=== PATIENT | female | born 1960 | race African-American/Black ===

== ENCOUNTER 2019-08-21 11:52 | Inpatient (IN) | payer MEDICAID ==
[2019-08-21] MEDS ORDERED: ONDANSETRON 4 MG TAB.RAPDIS PO ONE (13:30)
[2019-08-21] MEDS ORDERED: MORPHINE SULFATE 10 MG/ML INJ IM ONE (13:30)
--- NOTE | 2019-08-21 13:38 | ER Document Report ---
ED Medical Screen (RME) - General Chief Complaint: Flank Pain Stated Complaint: FLANK PAIN Time Seen by Provider: 08/21/19 13:26 - HPI Notes: 08/21/19 59-year-old female to the emergency department with complaints of left- sided flank pain and left upper quadrant abdominal pain that has been ongoing since Saturday and getting progressively worse. She states that she is having nausea and vomiting. She states that when she takes a big deep breath the pain gets worse. She denies any hematuria. She is never had a kidney stone. I performed a brief medical screening exam on the patient determined that she will need further evaluation by main side provider. I have placed initial orders to help expedite her care. - Related Data Allergies/Adverse Reactions: No Known Allergies Allergy (Verified 08/21/19 13:26) Physical Exam - Vital signs Vitals: Temp Pulse Resp BP Pulse Ox 97.6 F 62 20 153/86 H 94 08/21/19 13:00 08/21/19 13:00 08/21/19 13:00 08/21/19 13:00 08/21/19 13:00 Course - Vital Signs Vital signs: Temp Pulse Resp BP Pulse Ox 97.6 F 62 20 153/86 H 94 08/21/19 13:00 08/21/19 13:00 08/21/19 13:00 08/21/19 13:00 08/21/19 13:00
[2019-08-21 14:01] LABS: APPEARANCE,URINE CLEAR; BILIRUBIN,URINE NEGATIVE (NEGATIVE); COLOR,URINE YELLOW; GLUCOSE, URINE NEGATIVE (NEGATIVE); KETONES,URINE TRACE mg/dL (NEGATIVE); PROTEIN,URINE NEGATIVE (NEGATIVE); URINE SPECIFIC GRAVITY 1.008
--- NOTE | 2019-08-21 15:44 | RADIOLOGY REPORT (SQ) ---
EXAM DESCRIPTION: CT ABD/PELVIS NO ORAL OR IV COMPLETED DATE/TIME: 08/21/2019 3:19 pm REASON FOR STUDY: LUQ/left flank pain COMPARISON: None. TECHNIQUE: CT scan of the abdomen and pelvis performed without intravenous or oral contrast. Images reviewed with lung, soft tissue, and bone windows. Reconstructed coronal and sagittal MPR images revi ewed. All images stored on PACS. All CT scanners at this facility use dose modulation, iterative reconstruction, and/or weight based d osing when appropriate to reduce radiation dose to as low as reasonably achievable (ALARA). [facility]: Dose Right [facility]: CareDose [facility]: Dose Right [facility]: Teradose 4D [facility]: Smart Biometric Security RADIATION DOSE: CT Rad equipment meets quality standard of care and radiation dose reduction techniq ues were employed. CTDIvol: 19.2 mGy. DLP: 1092 mGy-cm.mGy. LIMITATIONS: Morbidly obese patient, beam hardening artifact FINDINGS: There is a hyperdense (70 Hounsfield units) cyst or mass along the left upper pole kidney measuring almost 3 cm in diameter on axial image 31 and coronal image 55. No left-sided renal stone s or hydronephrosis. Also surrounding the left upper pole kidney in the pararenal fat, there is increased attenuation from inflammation/infection/fluid in the left upper quadrant retroperitoneum. This tract down the left p ericolic gutter and up towards the pancreatic tail, splenic flexure colon and splenic hilum. Retrope ritoneal inflammation/ stranding in the left upper quadrant could indicate pancreatitis, colitis ritu g the splenic flexure colon, or could be related to left-sided pyelonephritis. Acute hemorrhage into a left upper pole renal cortical cyst or mass could also cause this appearance. These findings were discussed with Alyssa Santos MD in the emergency room. LOWER CHEST: No significant findings. No nodules or infiltrates. NON-CONTRASTED LIVER, SPLEEN, ADRENALS: Evaluation limited by lack of IV contrast. No identified sign ificant masses. PANCREAS: Pancreatic head neck and body unremarkable. Inflammation along the pancreatic tail in the left upper quadrant as above GALLBLADDER: Surgically absent RIGHT KIDNEY AND URETER: No suspicious masses. Assessment limited by lack of IV contrast. No signif icant calcifications. No hydronephrosis or hydroureter. LEFT KIDNEY AND URETER: As above. AORTA AND RETROPERITONEUM: Left upper quadrant retroperitoneal inflammation. Abdominal aorta, vena c puma grossly unremarkable. BOWEL AND PERITONEAL CAVITY: Right upper quadrant inflammation adjacent to the splenic flexure colon and pancreatic tail. No CT evidence of bowel obstruction or free intraperitoneal air or fluid. APPENDIX: Normal. PELVIS, BLADDER, AND ABDOMINAL WALL:No abnormal masses. No free fluid. Bladder normal. Post hysterec paul BONES: No significant findings. OTHER: No other significant finding. IMPRESSION: Hyperdense mass left upper pole kidney could represent a hemorrhagic cyst or solid tumor . Left upper quadrant retroperitoneal inflammation. Differential is pyelonephritis versus pancreatitis at the pancreatic tail. Inflammation in the region from splenic flexure colitis could not be exclud ed COMMENT: Quality ID # [id number]: Final reports with documentation of one or more dose reduction techniques (e.g., Automated exposure control, adjustment of the mA and/or kV according to patient size, use of iterative reconstruction technique) TECHNICAL DOCUMENTATION: JOB ID: [id number] [employer]- All Rights Reserved Reading location - IP/workstation name: [email or web address]
--- NOTE | 2019-08-21 15:46 | RADIOLOGY REPORT (SQ) ---
EXAM DESCRIPTION: CHEST 2 VIEWS COMPLETED DATE/TIME: 08/21/2019 3:37 pm REASON FOR STUDY: LUq abd pain into the chest, hurts with big breath COMPARISON: None. EXAM PARAMETERS: NUMBER OF VIEWS: two views TECHNIQUE: Digital Frontal and Lateral radiographic views of the chest acquired. RADIATION DOSE: NA LIMITATIONS: Morbidly obese patient FINDINGS: LUNGS AND PLEURA: No opacities, masses or pneumothorax. No pleural effusion. MEDIASTINUM AND HILAR STRUCTURES: No masses or contour abnormalities. HEART AND VASCULAR STRUCTURES: Mild cardiomegaly BONES: No acute findings. HARDWARE: None in the chest. OTHER: No other significant finding. IMPRESSION: Mild cardiomegaly. No acute infiltrates TECHNICAL DOCUMENTATION: JOB ID: [id number] [employer]- All Rights Reserved Reading location - IP/workstation name: [email or web address]
[2019-08-21 19:06] LABS: ABSOLUTE LYMPHOCYTES (AUTO) 1.5 10^3/uL (0.5-4.7); ABSOLUTE MONOCYTES (AUTO) 1.5 10^3/uL (0.1-1.4); ABSOLUTE NEUT (AUTO) 10.9 10^3/uL (1.7-8.2); BASOPHILS % (AUTO) 0.3 % (0-2); EOSINOPHILS % (AUTO) 0.1 % (0-6); HEMOGLOBIN 12.2 g/dL (12.0-15.5); LYMPHOCYTES % (AUTO) 10.5 % (13-45); MEAN CORPUSCULAR VOLUME 88 fl (80-97); MONOCYTES % (AUTO) 10.9 % (3-13); PLATELET COUNT 234 10^3/uL (150-450); RED BLOOD COUNT 4.21 10^6/uL (3.72-5.28); RED CELL DISTRIBUTION WIDTH 15.8 % (11.5-14.0); SEGMENTED NEUTROPHILS % (AUTO) 78.2 % (42-78); TOTAL CELLS COUNTED % (AUTO) 100 %; WHITE BLOOD COUNT 13.9 10^3/uL (4.0-10.5)
[2019-08-21 19:24] LABS: ALBUMIN 3.8 g/dL (3.5-5.0); ALKALINE PHOSPHATASE 200 U/L (38-126); ANION GAP 11 (5-19); ASPARTATE AMINO TRANSFERASE 29 U/L (14-36); BILIRUBIN,DIRECT 0.7 mg/dL (0.0-0.4); BILIRUBIN,TOTAL 1.1 mg/dL (0.2-1.3); BLOOD UREA NITROGEN 9 mg/dL (7-20); CALCIUM 8.8 mg/dL (8.4-10.2); CARBON DIOXIDE 28 mmol/L (22-30); CHLORIDE 101 mmol/L (98-107); GLUCOSE 176 mg/dL (75-110); POTASSIUM 3.1 mmol/L (3.6-5.0); TOTAL PROTEIN 7.7 g/dL (6.3-8.2)
[2019-08-21] MEDS ORDERED: POTASSIUM CHLORIDE 10 MEQ TABLET.ER PO ONE (19:50)
[2019-08-21] MEDS ORDERED: NITROFURANTOIN MONOHYD/M-CRYST 100 MG CAPSULE PO ONE (19:51)
[2019-08-21] MEDS ORDERED: MORPHINE SULFATE 10 MG/ML INJ IV ONE (20:28)
[2019-08-21] MEDS ORDERED: NORMAL SALINE 1000 ML 1,000 ML IV ONE (22:09)
[2019-08-21] MEDS ORDERED: CEFTRIAXONE 1 GM/D5W RTU 1 GM/50 ML RTUPB IV ONE (22:10)
--- NOTE | 2019-08-21 22:14 | ER Document Report ---
ED General - General Chief Complaint: Flank Pain Stated Complaint: FLANK PAIN Time Seen by Provider: 08/21/19 13:26 Information source: Patient, Relative TRAVEL OUTSIDE OF THE [place] IN LAST 30 DAYS: No - HPI Onset: Just prior to arrival Onset/Duration: Gradual Quality of pain: Pressure, Throbbing Severity: Moderate Pain Level: 4 Associated symptoms: None Exacerbated by: Movement Relieved by: Denies Similar symptoms previously: No Recently seen / treated by doctor: No - Related Data Allergies/Adverse Reactions: No Known Allergies Allergy (Verified 08/21/19 13:26) Past Medical History - General Information source: Patient - Social History Smoking Status: Former Smoker Frequency of alcohol use: Occasional Drug Abuse: None Lives with: Family Family History: Reviewed & Not Pertinent Patient has suicidal ideation: No Patient has homicidal ideation: No - Past Medical History Cardiac Medical History: Reports: Hx Hypercholesterolemia, Hx Hypertension Endocrine Medical History: Reports: Hx Diabetes Mellitus Type 2 Review of Systems - Review of Systems Notes: REVIEW OF SYSTEMS: CONSTITUTIONAL : Denies fever, chills, or sweats. However on presentation patient is in mild to moderate discomfort EENT: Denies eye, ear, throat, or mouth pain or symptoms. Denies nasal or sinus congestion. CARDIOVASCULAR: Denies chest pain. RESPIRATORY: Denies cough, cold, or chest congestion. Denies shortness of breath, difficulty breathing, or wheezing. GASTROINTESTINAL: Patient reports abdominal pain worse to the left lower quadrant and flank. Patient denies any recent travel history or trauma history to the abdomen GENITOURINARY: Denies difficulty urinating, painful urination, burning, frequency, or blood in urine. MUSCULOSKELETAL: Denies neck or back pain or joint pain or swelling. SKIN: Denies rash or skin lesions. HEMATOLOGIC : Denies easy bruising or bleeding. NEUROLOGICAL: Denies altered mental status or loss of consciousness. Denies headache. Denies weakness or paralysis or loss of use of either side. Denies problems with gait or speech. Denies sensory or motor loss. PSYCHIATRIC: Denies suicidal or homicidal ideations 10 Systems are negative unless otherwise specified above Physical Exam - Vital signs Vitals: Temp Pulse Resp BP Pulse Ox 97.6 F 62 20 153/86 H 94 08/21/19 13:00 08/21/19 13:08/21/19 13:08/21/19 13:08/21/19 13:00 - Notes Notes: HEENT: Normocephalic atraumatic pupils are equal round reactive to light extraocular muscles are intact there is no conjunctival injection Neck: Trachea is midline no JVD Lungs: are clear to auscultation no wheezes rales or rhonchi Cardiac: Regular rhythm and rate no gallops murmurs or rubs were appreciated Abdomen: Patient is morbidly obese complaining of pain to the left flank and left lower quadrant there is no rebound however patient does have active guarding there is no appreciable CVA tenderness any range of motion does elicit discomfort/pain response Extremities: Active full range of motion x4, 2+ pulses x4 Skin: Warm dry intact Neurologic: Patient is alert and oriented x3 Mcewen Coma Scale of 15 Course - Re-evaluation Re-evalutation: 08/21/19 22:11 Patient has been reevaluated several times while in the emergency department. Patient has remained stable without decompensation. After review of applicable laboratory and/or radiologic results, there are no signs of acute abdomen to include: acute appendicitis, cholelithiasis or cholecystitis, bowel obstruction or ileus, there are no signs of Aortic Dissection, diverticulitis or diverticulosis. Kidney abnormalities include UTI and hyperdense mass to the left upper pole of the kidney per CT reads, no signs of Ovarian torsion. There is question by the radiologist of etiology of left upper quadrant retroperitoneal inflammation. I have consulted with the hospitalist who is agreeable with admission. Patient did receive 20 mEq of potassium p.o. for mild hypokalemia. Patient initially received Macrobid 100 mg p.o. and subsequently 1 g of Rocephin IV for treating UTI and presumed pyelonephritis. Patient and family are aware and agreeable with admission. - Vital Signs Vital signs: Temp Pulse Resp BP Pulse Ox 97.9 F 90 19 145/69 H 95 08/25/19 11:17 08/25/19 14:00 08/25/19 11:17 08/25/19 11:17 08/25/19 13:11 - Laboratory Result Diagrams: 08/24/19 05:20 08/24/19 22:24 Laboratory results interpreted by me: 08/21/19 08/21/19 08/21/19 13:20 18:24 18:24 WBC 13.9 H RDW 15.8 H Lymph % (Auto) 10.5 L Absolute Neuts (auto) 10.9 H Absolute Monos (auto) 1.5 H Seg Neutrophils % 78.2 H Potassium 3.1 L Glucose 176 H Magnesium Direct Bilirubin 0.7 H Alkaline Phosphatase 200 H Urine Ketones TRACE H Urine Blood SMALL H Urine Urobilinogen 4.0 H Leukocyte Esterase Rfl MODERATE H 08/21/19 18:24 WBC RDW Lymph % (Auto) Absolute Neuts (auto) Absolute Monos (auto) Seg Neutrophils % Potassium Glucose Magnesium 2.7 H Direct Bilirubin Alkaline Phosphatase Urine Ketones Urine Blood Urine Urobilinogen Leukocyte Esterase Rfl - Diagnostic Test Radiology reviewed: Reports reviewed Discharge - Discharge Clinical Impression: Pyelonephritis UTI (urinary tract infection) Qualifiers: Urinary tract infection type: acute pyelonephritis Qualified Code(s): N10 - Acute pyelonephritis Condition: Fair Disposition: ADMITTED INPATIENT Admitting Provider: Chano (Hospitalist) Unit Admitted: Telemetry
[2019-08-21] MEDS ORDERED: MAG HYDROX/AL HYDROX/SIMETH SUSP 30 ML UDCUP PO PRN (22:17)
[2019-08-21] MEDS ORDERED: GLUCAGON,HUMAN RECOMB 1 MG INJ IM PRN (22:17)
[2019-08-21] MEDS ORDERED: IPRATROPIUM/ALBUTEROL 0.5-2.5 MG/3 ML AMPUL NEB PRN (22:17)
[2019-08-21] MEDS ORDERED: DEXTROSE 50%-WATER 25 GM/50 ML DISP.SYRIN IV PRN ×2 (22:17)
[2019-08-21] MEDS ORDERED: DEXTROSE 40% GEL 15 GM TUBE PO PRN ×2 (22:17)
[2019-08-21] MEDS ORDERED: NORMAL SALINE 1000 ML 1,000 ML IV PRN (22:30)
[2019-08-21] MEDS ORDERED: MAGNESIUM HYDROXIDE SUSP 30 ML UDCUP PO ONE (22:45)
[2019-08-22] MEDS: ACETAMINOPHEN 325 MG TABLET PO PRN ×2 (00:44→08:03)
[2019-08-22] MEDS: POTASSI CL 20 MEQ/50 ML RIDER 20 MEQ/50 ML RTUPB IV SCH ×2 (00:45→05:56)
[2019-08-22] MEDS ORDERED: CEFTRIAXONE 1 GM/D5W RTU 1 GM/50 ML RTUPB IV ONE (01:18)
[2019-08-22] MEDS: KETOROLAC TROMETHAMINE INJ/PF 30 MG/1 ML SDV IV PRN ×3 (02:35→21:11)
--- NOTE | 2019-08-22 05:49 | PDOC H&P ---
History of Present Illness Admission Date/PCP: 08/21/19 22:22 Patient complains of: Left-sided flank pain and fever History of Present Illness: SABRINA MEZA is a 59 year old female with a past medical history of diabetes, hypertension, super morbid obesity and obstructive sleep apnea. She presents with fever and 4 days of sharp left-sided chest pain worsened by deep breathing. In the emergency department she is found to have fever, tachycardia, pyuria and left-sided pyelonephritis without abscess or hydronephrosis. She started on empiric antibiotics and referred to the hospitalist for admission. Patient denies recent antibiotic use or nephrolithiasis. Past Medical History Cardiac Medical History: Reports: Hyperlipidema, Hypertension Pulmonary Medical History: Reports: Sleep Apnea Endocrine Medical History: Reports: Diabetes Mellitus Type 2 Social History Information Source: Patient, Emergency Med Personnel, [facility] Records Lives with: Family Smoking Status: Former Smoker - Advance Directive Resuscitation Status: Full Code Family History Family History: CAD, DM, Hypertension Parental Family History Reviewed: Yes Children Family History Reviewed: Yes Sibling(s) Family History Reviewed.: Yes Medication/Allergy Allergies/Adverse Reactions: No Known Allergies Allergy (Verified 08/21/19 13:26) Review of Systems Constitutional: PRESENT: as per HPI, chills, fatigue, fever(s), weight gain Eyes: ABSENT: visual disturbances Ears: ABSENT: hearing changes Cardiovascular: ABSENT: chest pain, dyspnea on exertion, edema, orthropnea, palpitations Respiratory: ABSENT: cough, hemoptysis Gastrointestinal: ABSENT: abdominal pain, constipation, diarrhea, hematemesis, hematochezia, nausea, vomiting Genitourinary: PRESENT: as per HPI, dysuria. ABSENT: hematuria Musculoskeletal: ABSENT: joint swelling Integumentary: ABSENT: rash, wounds Neurological: ABSENT: abnormal gait, abnormal speech, confusion, dizziness, focal weakness, syncope Psychiatric: ABSENT: anxiety, depression, homidical ideation, suicidal ideation Endocrine: ABSENT: cold intolerance, heat intolerance, polydipsia, polyuria Hematologic/Lymphatic: ABSENT: easy bleeding, easy bruising Physical Exam Vital Signs: Temp Pulse Resp BP Pulse Ox 99.8 F 111 H 28 H 144/72 H 95 08/22/19 01:11 08/22/19 02:00 08/22/19 04:08 08/22/19 01:11 02/01/20 04:08 Intake & Output 08/20/19 08/21/19 08/22/19 11:59 11:59 11:59 Intake Total 50 Balance 50 Weight 185.7 kg General appearance: PRESENT: cooperative, morbidly obese, severe distress Head exam: PRESENT: atraumatic, normocephalic Eye exam: PRESENT: conjunctiva pink, EOMI, PERRLA. ABSENT: scleral icterus Ear exam: PRESENT: normal external ear exam Mouth exam: PRESENT: moist, tongue midline Neck exam: ABSENT: carotid bruit, JVD, lymphadenopathy, thyromegaly Respiratory exam: PRESENT: accessory muscle use, crackles, retraction, t achypnea. ABSENT: rales, rhonchi, wheezes Cardiovascular exam: PRESENT: tachycardia. ABSENT: diastolic murmur, rubs, systolic murmur Pulses: PRESENT: normal dorsalis pedis pul Vascular exam: PRESENT: normal capillary refill GI/Abdominal exam: PRESENT: normal bowel sounds, soft. ABSENT: distended, guarding, mass, organolmegaly, rebound, tenderness Rectal exam: PRESENT: deferred Extremities exam: PRESENT: full ROM, +1 edema. ABSENT: calf tenderness, clubbing, pedal edema Neurological exam: PRESENT: alert, awake, oriented to person, oriented to place, oriented to time, oriented to situation, CN II-XII grossly intact. ABSENT: motor sensory deficit Psychiatric exam: PRESENT: appropriate affect, normal mood. ABSENT: homicidal ideation, suicidal ideation Skin exam: PRESENT: dry, intact, warm. ABSENT: cyanosis, rash Results Laboratory Results: 08/21/19 18:24 08/21/19 18:24 08/21/19 08/21/19 08/21/19 13:20 18:24 18:24 WBC 13.9 H RBC 4.21 Hgb 12.2 Hct 37.0 MCV 88 MCH 29.0 MCHC 33.0 RDW 15.8 H Plt Count 234 Seg Neutrophils % 78.2 H Sodium 140.1 Potassium 3.1 L Chloride 101 Carbon Dioxide 28 Anion Gap 11 BUN 9 Creatinine 0.69 Est GFR ( Amer) > 60 Glucose 176 H Calcium 8.8 Magnesium Total Bilirubin 1.1 AST 29 Alkaline Phosphatase 200 H Total Protein 7.7 Albumin 3.8 Lipase 205.7 Urine Color YELLOW Urine Appearance CLEAR Urine pH 7.0 Ur Specific [place] 1.008 Urine Protein NEGATIVE Urine Glucose (UA) NEGATIVE Urine Ketones TRACE H Urine Blood SMALL H Urine RBC (Auto) 3 08/21/19 18:24 WBC RBC Hgb Hct MCV MCH MCHC RDW Plt Count Seg Neutrophils % Sodium Potassium Chloride Carbon Dioxide Anion Gap BUN Creatinine Est GFR ( Amer) Glucose Calcium Magnesium 2.7 H Total Bilirubin AST Alkaline Phosphatase Total Protein Albumin Lipase Urine Color Urine Appearance Urine pH Ur Specific [place] Urine Protein Urine Glucose (UA) Urine Ketones Urine Blood Urine RBC (Auto) Impressions: Abdomen/Pelvis CT 08/21/19 13:29 IMPRESSION: Hyperdense mass left upper pole kidney could represent a hemorrhagic cyst or solid tumor. Left upper quadrant retroperitoneal inflammation. Differential is pyelonephritis versus pancreatitis at the pancreatic tail. Inflammation in the region from splenic flexure colitis could not be excluded Chest X-Ray 08/21/19 13:30 IMPRESSION: Mild cardiomegaly. No acute infiltrates Assessment and Plan - Diagnosis (1) Pyelonephritis Is this a current diagnosis for this admission?: Yes Plan: Empiric antibiotics, follow-up blood and urine culture consider follow-up ultrasound for evaluation of forming abscess given irregularity described on CT (2) Sepsis Is this a current diagnosis for this admission?: Yes Plan: Secondary to #1, IV fluid challenge, follow-up blood and urine culture (3) Obstructive sleep apnea Is this a current diagnosis for this admission?: Yes Plan: Complicated by super morbid obesity, avoid cervical flexion, BiPAP while asleep (4) Diabetes Is this a current diagnosis for this admission?: Yes Plan: Outpatient regimen with Humalog sliding scale - Time Time Spent with patient: 25-34 minutes - Inpatient Certification Medical Necessity: Need Close Monitoring Due to Risk of Patient Decompensation
[2019-08-22] MEDS ORDERED: POTASSI CL 20 MEQ/50 ML RIDER 20 MEQ/50 ML RTUPB IV ONE (05:53)
[2019-08-22] MEDS: HEPARIN SOD (PORCINE) 5,000 UNIT/ML 1 ML VIAL SUBCUT SCH ×3 (05:57→21:06)
[2019-08-22 06:16] LABS: ABSOLUTE BASOPHILS # (AUTO) 0.1 10^3/uL (0.0-0.2); ABSOLUTE LYMPHOCYTES (AUTO) 1.9 10^3/uL (0.5-4.7); ABSOLUTE MONOCYTES (AUTO) 2.1 10^3/uL (0.1-1.4); ABSOLUTE NEUT (AUTO) 12.4 10^3/uL (1.7-8.2); BASOPHILS % (AUTO) 0.3 % (0-2); EOSINOPHILS % (AUTO) 0.3 % (0-6); HEMATOCRIT 33.9 % (36.0-47.0); HEMOGLOBIN 11.1 g/dL (12.0-15.5); LYMPHOCYTES % (AUTO) 11.5 % (13-45); MEAN CORPUSCULAR HEMOGLOBIN 28.8 pg (27.0-33.4); MEAN CORPUSCULAR HGB CONC 32.7 g/dL (32.0-36.0); MEAN CORPUSCULAR VOLUME 88 fl (80-97); MONOCYTES % (AUTO) 12.9 % (3-13); PLATELET COUNT 209 10^3/uL (150-450); RED BLOOD COUNT 3.86 10^6/uL (3.72-5.28); RED CELL DISTRIBUTION WIDTH 15.9 % (11.5-14.0); TOTAL CELLS COUNTED % (AUTO) 100 %; WHITE BLOOD COUNT 16.5 10^3/uL (4.0-10.5)
[2019-08-22] MEDS: INSULIN LISPRO 100 UNIT/ML 3 ML VIAL SUBCUT SCH ×3 (08:09→17:16)
[2019-08-22] MEDS: MAGNESIUM HYDROXIDE SUSP 30 ML UDCUP PO SCH (09:59)
[2019-08-22] MEDS: DOCUSATE SODIUM 100 MG CAPSULE PO SCH ×2 (09:59→17:33)
[2019-08-22] MEDS ORDERED: METOPROLOL TARTRATE PF/INJ 5 MG/5 ML SDV IV PRN (10:28)
[2019-08-22] MEDS ORDERED: MORPHINE SULFATE 10 MG/ML INJ IV PRN (10:29)
[2019-08-22] MEDS ORDERED: ONDANSETRON HCL INJ/PF 4 MG/2 ML SDV IV PRN (10:29)
[2019-08-22] MEDS ORDERED: HYDRALAZINE HCL INJ/PF 20 MG/1 ML SDV IV PRN (10:31)
[2019-08-22 11:29] LABS: CHOLESTEROL 95.17 mg/dL (0-200); TRIGLYCERIDES 101 mg/dL (<150)
[2019-08-22] MEDS ORDERED: METOPROLOL TARTRATE PF/INJ 5 MG/5 ML SDV IV ONE (11:30)
[2019-08-22 11:40] LABS: DIRECT LDL 55 mg/dL (<100)
--- NOTE | 2019-08-22 12:28 | PDOC PROGRESS REPORT ---
Subjective Progress Note for:: 08/22/19 Subjective:: SABRINA MEZA is a 59 year old female with a past medical history of diabetes, hypertension, super morbid obesity and obstructive sleep apnea. She presents with fever and 4 days of sharp left-sided chest pain worsened by deep breathing. In the emergency department she is found to have fever, tachycardia, pyuria and left-sided pyelonephritis without abscess or hydronephrosis. She started on empiric antibiotics and referred to the hospitalist for admission. Patient denies recent antibiotic use or nephrolithiasis. 08/22/2019. Patient complaining of persistent right flank and right lower quadrant abdominal pain chills and persistent nausea. Denies any chest pain, shortness of breath, diarrhea or constipation. Reason For Visit: PYELONEPHRITIS DM,SUPER MORBID OBESITY Physical Exam Vital Signs: Temp Pulse Resp BP Pulse Ox 102.8 F H 132 H 30 H 148/77 H 94 08/22/19 07:24 08/22/19 07:24 08/22/19 09:25 08/22/19 07:24 08/22/19 09:25 Intake & Output 08/21/19 08/22/19 08/23/19 06:59 06:59 06:59 Intake Total 500 Balance 500 Weight 185.7 kg General appearance: PRESENT: mild distress, morbidly obese Head exam: PRESENT: atraumatic, normocephalic Respiratory exam: PRESENT: clear to auscultation rima. ABSENT: rales, rhonchi, wheezes Cardiovascular exam: PRESENT: RRR. ABSENT: diastolic murmur, rubs, systolic murmur GI/Abdominal exam: PRESENT: guarding, normal bowel sounds, soft, tenderness - R ight lower quadrant.. ABSENT: distended, mass, organolmegaly, rebound Extremities exam: PRESENT: full ROM. ABSENT: calf tenderness, clubbing, pedal edema Neurological exam: PRESENT: alert, awake, oriented to person, oriented to place, oriented to time, oriented to situation, CN II-XII grossly intact. ABSENT: motor sensory deficit Results Laboratory Results: 08/22/19 05:09 08/21/19 18:24 08/21/19 08/21/19 08/21/19 13:20 18:24 18:24 WBC 13.9 H RBC 4.21 Hgb 12.2 Hct 37.0 MCV 88 MCH 29.0 MCHC 33.0 RDW 15.8 H Plt Count 234 Seg Neutrophils % 78.2 H Sodium 140.1 Potassium 3.1 L Chloride 101 Carbon Dioxide 28 Anion Gap 11 BUN 9 Creatinine 0.69 Est GFR ( Amer) > 60 Glucose 176 H Lactic Acid Calcium 8.8 Magnesium Total Bilirubin 1.1 AST 29 Alkaline Phosphatase 200 H Total Protein 7.7 Albumin 3.8 Triglycerides Cholesterol LDL Cholesterol Direct VLDL Cholesterol HDL Cholesterol Lipase 205.7 TSH Urine Color YELLOW Urine Appearance CLEAR Urine pH 7.0 Ur Specific [place] 1.008 Urine Protein NEGATIVE Urine Glucose (UA) NEGATIVE Urine Ketones TRACE H Urine Blood SMALL H Urine RBC (Auto) 3 08/21/19 08/22/19 08/22/19 18:24 05:09 05:09 WBC 16.5 H RBC 3.86 Hgb 11.1 L Hct 33.9 L MCV 88 MCH 28.8 MCHC 32.7 RDW 15.9 H Plt Count 209 Seg Neutrophils % 75.0 Sodium Potassium Chloride Carbon Dioxide Anion Gap BUN Creatinine Est GFR ( Amer) Glucose Lactic Acid Calcium Magnesium 2.7 H Total Bilirubin AST Alkaline Phosphatase Total Protein Albumin Triglycerides Cholesterol LDL Cholesterol Direct VLDL Cholesterol HDL Cholesterol Lipase TSH 2.44 Urine Color Urine Appearance Urine pH Ur Specific [place] Urine Protein Urine Glucose (UA) Urine Ketones Urine Blood Urine RBC (Auto) 08/22/19 08/22/19 05:09 06:20 WBC RBC Hgb Hct MCV MCH MCHC RDW Plt Count Seg Neutrophils % Sodium Potassium Chloride Carbon Dioxide Anion Gap BUN Creatinine Est GFR ( Amer) Glucose Lactic Acid 1.5 Calcium Magnesium Total Bilirubin AST Alkaline Phosphatase Total Protein Albumin Triglycerides 101 Cholesterol 95.17 LDL Cholesterol Direct 55 VLDL Cholesterol 20.0 HDL Cholesterol 18 L Lipase TSH Urine Color Urine Appearance Urine pH Ur Specific [place] Urine Protein Urine Glucose (UA) Urine Ketones Urine Blood Urine RBC (Auto) Impressions: Abdomen/Pelvis CT 08/21/19 13:29 IMPRESSION: Hyperdense mass left upper pole kidney could represent a hemorrhagic cyst or solid tumor. Left upper quadrant retroperitoneal inflammation. Differential is pyelonephritis versus pancreatitis at the pancreatic tail. Inflammation in the region from splenic flexure colitis could not be excluded Chest X-Ray 08/21/19 13:30 IMPRESSION: Mild cardiomegaly. No acute infiltrates Assessment and Plan - Diagnosis (1) UTI (urinary tract infection) Qualifiers: Urinary tract infection type: acute pyelonephritis Qualified Code(s): N10 - Acute pyelonephritis Is this a current diagnosis for this admission?: Yes Plan: Acute pyelonephritis. Abdominal CT positive for left upper quadrant retroperitoneal inflammation. Likely due to gram-negative rods including E. coli. Day 2 IV antibiotics. Day 1 IV Zosyn. Received 1 dose of IV ceftriaxone. Patient is still having worsening leukocytosis and still febrile. We will switch ceftriaxone to Zosyn to extend coverage. Continue broad-spectrum empiric IV antibiotics. Follow-up urine and blood culture. (2) Diabetes Qualifiers: Diabetes mellitus type: type 2 Is this a current diagnosis for this admission?: Yes Plan: Controlled. Hemoglobin A1c 6.7. Continue diabetic diet, sliding scale insulin, Accu-Chek, hypoglycemia protocol. Resume home meds upon discharge. (3) Obstructive sleep apnea Is this a current diagnosis for this admission?: Yes Plan: Complicated by super morbid obesity. Continue nocturnal CPAP. Outpatient nocturnal polysomnography. (4) SIRS (systemic inflammatory response syndrome) Is this a current diagnosis for this admission?: Yes Plan: Presented with fever, neutrophilic leukocytosis, tachypnea, tachycardia. Normal platelets. Normal creatinine. Normal LFTs. Normal lactic acid. Due to acute pyelonephritis. Continue empiric IV antibiotics, continue volume restriction guided by volume status, follow-up blood and urine culture. (5) Sepsis Is this a current diagnosis for this admission?: Yes Plan: Ruled out. Presentation is more suggestive of systemic inflammatory response. Presented with fever, neutrophilic leukocytosis, tachypnea, tachycardia. Normal platelets. Normal creatinine. Normal LFTs. Normal lactic acid. (6) Morbid obesity with BMI of 70 and over, adult Is this a current diagnosis for this admission?: Yes Plan: BMI 77.4. Likely a candidate for bariatric intervention. TSH WNL. Lipid panel WNL. Hemoglobin A1c 7.3. Diet and lifestyle modification recommended.
[2019-08-22] MEDS: PIPERACILLIN SODIUM/TAZOBACTAM 4.5 GM in NORMAL SALINE 100 ML IV SCH ×2 (12:41→17:33)
[2019-08-22] MEDS ORDERED: CEFTRIAXONE 1 GM/D5W RTU 1 GM/50 ML RTUPB IV SCH (22:00)
[2019-08-22 23:31] LABS: ANION GAP 6 (5-19); BLOOD UREA NITROGEN 10 mg/dL (7-20); CALCIUM 7.9 mg/dL (8.4-10.2); CARBON DIOXIDE 29 mmol/L (22-30); CHLORIDE 102 mmol/L (98-107); GLUCOSE 170 mg/dL (75-110); POTASSIUM 3.1 mmol/L (3.6-5.0)
--- NOTE | 2019-08-22 23:48 | EKG REPORT ---
SEVERITY:- BORDERLINE ECG - SINUS TACHYCARDIA BORDERLINE T ABNORMALITIES, DIFFUSE LEADS : Confirmed by: Charmaine Hernandez 22-Aug-2019 23:47:39
[2019-08-23] MEDS: PIPERACILLIN SODIUM/TAZOBACTAM 4.5 GM in NORMAL SALINE 100 ML IV SCH ×5 (00:11→23:06)
[2019-08-23] MEDS: KETOROLAC TROMETHAMINE INJ/PF 30 MG/1 ML SDV IV PRN ×3 (04:57→23:06)
[2019-08-23] MEDS: HEPARIN SOD (PORCINE) 5,000 UNIT/ML 1 ML VIAL SUBCUT SCH ×3 (05:03→21:42)
[2019-08-23] MEDS: INSULIN LISPRO 100 UNIT/ML 3 ML VIAL SUBCUT SCH ×3 (09:03→16:46)
[2019-08-23] MEDS ORDERED: CEFTRIAXONE 1 GM/D5W RTU 1 GM/50 ML RTUPB IV SCH (10:00)
--- NOTE | 2019-08-23 10:20 | PDOC PROGRESS REPORT ---
Subjective Progress Note for:: 08/23/19 Subjective:: SABRINA MEZA is a 59 year old female with a past medical history of diabetes, hypertension, super morbid obesity and obstructive sleep apnea. She presents with fever and 4 days of sharp left-sided chest pain worsened by deep breathing. In the emergency department she is found to have fever, tachycardia, pyuria and left-sided pyelonephritis without abscess or hydronephrosis. She started on empiric antibiotics and referred to the hospitalist for admission. Patient denies recent antibiotic use or nephrolithiasis. 08/22/2019. Patient complaining of persistent right flank and right lower quadrant abdominal pain chills and persistent nausea. Denies any chest pain, shortness of breath, diarrhea or constipation. 08/23/2019. No acute events overnight. Still complaining of persistent left lower quadrant abdominal pain but improving compared to yesterday, denies any fever, chills, nausea, vomiting, abdominal pain, diarrhea, constipation. Reason For Visit: PYELONEPHRITIS DM,SUPER MORBID OBESITY Physical Exam Vital Signs: Temp Pulse Resp BP Pulse Ox 97.7 F 95 18 149/71 H 99 08/23/19 08:00 08/23/19 08:00 08/23/19 08:00 08/23/19 08:00 08/23/19 08:00 Intake & Output 08/22/19 08/23/19 08/24/19 06:59 06:59 06:59 Intake Total 500 1208 Output Total 1775 Balance 500 -567 Weight 185.7 kg 190.2 kg General appearance: PRESENT: morbidly obese Head exam: PRESENT: atraumatic, normocephalic Neck exam: ABSENT: carotid bruit, JVD, lymphadenopathy, thyromegaly Respiratory exam: PRESENT: clear to auscultation rima. ABSENT: rales, rhonchi, wheezes Cardiovascular exam: PRESENT: RRR. ABSENT: diastolic murmur, rubs, systolic murmur GI/Abdominal exam: PRESENT: guarding, normal bowel sounds, soft, tenderness. ABSENT: distended, mass, organolmegaly, rebound Neurological exam: PRESENT: alert, awake, oriented to person, oriented to place, oriented to time, oriented to situation, CN II-XII grossly intact. ABSENT: motor sensory deficit Results Laboratory Results: 08/22/19 05:09 08/22/19 08/22/19 08/22/19 05:09 05:09 22:00 Sodium Cancelled Potassium Cancelled Chloride Cancelled Carbon Dioxide Cancelled Anion Gap Cancelled BUN Cancelled Creatinine Cancelled Est GFR ( Amer) Cancelled Est GFR (Non-Af Amer) Cancelled Glucose Cancelled Calcium Cancelled Triglycerides 101 Cholesterol 95.17 LDL Cholesterol Direct 55 VLDL Cholesterol 20.0 HDL Cholesterol 18 L TSH 2.44 08/22/19 22:56 Sodium 137.0 Potassium 3.1 L Chloride 102 Carbon Dioxide 29 Anion Gap 6 BUN 10 Creatinine 0.72 Est GFR ( Amer) > 60 Est GFR (Non-Af Amer) Glucose 170 H Calcium 7.9 L Triglycerides Cholesterol LDL Cholesterol Direct VLDL Cholesterol HDL Cholesterol TSH 08/21/19 22:54 Blood Blood Culture (PCR) - Final Staphylococcus Species 08/22/19 13:21 NT-Pro-B Natriuret Pep 121 Impressions: Abdomen/Pelvis CT 08/21/19 13:29 IMPRESSION: Hyperdense mass left upper pole kidney could represent a hem orrhagic cyst or solid tumor. Left upper quadrant retroperitoneal inflammation. Differential is nu lonephritis versus pancreatitis at the pancreatic tail. Inflammation in the region from splenic flexure colitis could not be excluded Chest X-Ray 08/21/19 13:30 IMPRESSION: Mild cardiomegaly. No acute infiltrates Assessment and Plan - Diagnosis (1) UTI (urinary tract infection) Qualifiers: Urinary tract infection type: acute pyelonephritis Qualified Code(s): N10 - Acute pyelonephritis Is this a current diagnosis for this admission?: Yes Plan: Acute pyelonephritis. Abdominal CT positive for left upper quadrant retroperitoneal inflammation. Likely due to gram-negative rods including E. coli. Day 3 IV antibiotics. Day 2 IV Zosyn. Received 1 dose of IV ceftriaxone. Patient is still having worsening leukocytosis and still febrile. We will switch ceftriaxone to Zosyn to extend coverage. Continue broad-spectrum empiric IV antibiotics. Follow-up urine and blood culture. (2) Diabetes Qualifiers: Diabetes mellitus type: type 2 Is this a current diagnosis for this admission?: Yes Plan: Controlled. Hemoglobin A1c 6.7. Continue diabetic diet, sliding scale insulin, Accu-Chek, hypoglycemia protocol. Resume home meds upon discharge. (3) Obstructive sleep apnea Is this a current diagnosis for this admission?: Yes Plan: Complicated by super morbid obesity. Continue nocturnal CPAP. Outpatient nocturnal polysomnography. (4) SIRS (systemic inflammatory response syndrome) Is this a current diagnosis for this admission?: Yes Plan: Presented with fever, neutrophilic leukocytosis, tachypnea, tachycardia. Normal platelets. Normal creatinine. Normal LFTs. Normal lactic acid. Due to acute pyelonephritis. Continue empiric IV antibiotics, continue volume restriction guided by volume status, follow-up blood and urine culture. (5) Sepsis Is this a current diagnosis for this admission?: Yes Plan: Ruled out. Presentation is more suggestive of systemic inflammatory response. Presented with fever, neutrophilic leukocytosis, tachypnea, tachycardia. Normal platelets. Normal creatinine. Normal LFTs. Normal lactic acid. (6) Morbid obesity with BMI of 70 and over, adult Is this a current diagnosis for this admission?: Yes Plan: BMI 77.4. Likely a candidate for bariatric intervention. TSH WNL. Lipid panel WNL. Hemoglobin A1c 7.3. Diet and lifestyle modification recommended.
[2019-08-23] MEDS ORDERED: (PENDING PHARMACY ID) (Metformin Hcl [Metformin Hcl] 1,000 MG) PO SCH (10:30)
[2019-08-23 10:37] LABS: ANION GAP 10 (5-19); BLOOD UREA NITROGEN 10 mg/dL (7-20); CALCIUM 7.6 mg/dL (8.4-10.2); CARBON DIOXIDE 27 mmol/L (22-30); CHLORIDE 101 mmol/L (98-107); GLUCOSE 217 mg/dL (75-110); POTASSIUM 3.3 mmol/L (3.6-5.0)
[2019-08-23] MEDS: METOPROLOL SUCCINATE 50 MG TAB.SR.24H PO SCH (10:44)
[2019-08-23] MEDS: MAGNESIUM HYDROXIDE SUSP 30 ML UDCUP PO SCH (10:44)
[2019-08-23] MEDS: GABAPENTIN 300 MG CAPSULE PO SCH ×2 (10:45→21:42)
[2019-08-23] MEDS: ASPIRIN 81 MG TABLET, ENT COATED PO SCH (10:45)
[2019-08-23] MEDS: DOCUSATE SODIUM 100 MG CAPSULE PO SCH ×2 (11:03→18:12)
[2019-08-23] MEDS: METFORMIN HCL 500 MG TABLET PO SCH ×2 (11:42→17:37)
[2019-08-23] MEDS: ATORVASTATIN CALCIUM 40 MG TABLET PO SCH (21:42)
[2019-08-23 22:43] LABS: ANION GAP 6 (5-19); BLOOD UREA NITROGEN 12 mg/dL (7-20); CALCIUM 7.8 mg/dL (8.4-10.2); CARBON DIOXIDE 28 mmol/L (22-30); CHLORIDE 102 mmol/L (98-107); GLUCOSE 133 mg/dL (75-110)
[2019-08-23 22:58] LABS: POTASSIUM 4.5 mmol/L (3.6-5.0)
[2019-08-24] MEDS: PIPERACILLIN SODIUM/TAZOBACTAM 4.5 GM in NORMAL SALINE 100 ML IV SCH ×4 (05:28→23:46)
[2019-08-24] MEDS: HEPARIN SOD (PORCINE) 5,000 UNIT/ML 1 ML VIAL SUBCUT SCH ×3 (05:28→22:16)
[2019-08-24 05:38] LABS: ABSOLUTE BASOPHILS # (AUTO) 0.1 10^3/uL (0.0-0.2); ABSOLUTE EOSINOPHILS # (AUTO) 0.4 10^3/uL (0.0-0.6); ABSOLUTE LYMPHOCYTES (AUTO) 2.4 10^3/uL (0.5-4.7); ABSOLUTE MONOCYTES (AUTO) 1.5 10^3/uL (0.1-1.4); ABSOLUTE NEUT (AUTO) 13.2 10^3/uL (1.7-8.2); BASOPHILS % (AUTO) 0.5 % (0-2); HEMATOCRIT 31.6 % (36.0-47.0); HEMOGLOBIN 10.5 g/dL (12.0-15.5); LYMPHOCYTES % (AUTO) 13.6 % (13-45); MEAN CORPUSCULAR HGB CONC 33.1 g/dL (32.0-36.0); MEAN CORPUSCULAR VOLUME 88 fl (80-97); MONOCYTES % (AUTO) 8.7 % (3-13); PLATELET COUNT 228 10^3/uL (150-450); RED BLOOD COUNT 3.61 10^6/uL (3.72-5.28); RED CELL DISTRIBUTION WIDTH 16.3 % (11.5-14.0); SEGMENTED NEUTROPHILS % (AUTO) 75.2 % (42-78); TOTAL CELLS COUNTED % (AUTO) 100 %; WHITE BLOOD COUNT 17.6 10^3/uL (4.0-10.5)
[2019-08-24 06:03] LABS: ANION GAP 8 (5-19); BLOOD UREA NITROGEN 11 mg/dL (7-20); CARBON DIOXIDE 29 mmol/L (22-30); CHLORIDE 102 mmol/L (98-107); GLUCOSE 121 mg/dL (75-110); POTASSIUM 3.7 mmol/L (3.6-5.0)
[2019-08-24] MEDS: INSULIN LISPRO 100 UNIT/ML 3 ML VIAL SUBCUT SCH ×3 (07:32→17:28)
[2019-08-24] MEDS: KETOROLAC TROMETHAMINE INJ/PF 30 MG/1 ML SDV IV PRN ×2 (08:37→22:16)
[2019-08-24] MEDS: ASPIRIN 81 MG TABLET, ENT COATED PO SCH (10:48)
[2019-08-24] MEDS: METFORMIN HCL 500 MG TABLET PO SCH ×2 (10:48→17:28)
[2019-08-24] MEDS: METOPROLOL SUCCINATE 50 MG TAB.SR.24H PO SCH (10:48)
[2019-08-24] MEDS: GABAPENTIN 300 MG CAPSULE PO SCH ×2 (10:48→22:16)
[2019-08-24] MEDS: DOCUSATE SODIUM 100 MG CAPSULE PO SCH ×2 (10:49→17:28)
[2019-08-24] MEDS: MAGNESIUM HYDROXIDE SUSP 30 ML UDCUP PO SCH (10:53)
--- NOTE | 2019-08-24 12:45 | PDOC PROGRESS REPORT ---
Subjective Progress Note for:: 08/24/19 Subjective:: SABRINA MEZA is a 59 year old female with a past medical history of diabetes, hypertension, super morbid obesity and obstructive sleep apnea. She presents with fever and 4 days of sharp left-sided chest pain worsened by deep breathing. In the emergency department she is found to have fever, tachycardia, pyuria and left-sided pyelonephritis without abscess or hydronephrosis. She started on empiric antibiotics and referred to the hospitalist for admission. Patient denies recent antibiotic use or nephrolithiasis. 08/22/2019. Patient complaining of persistent right flank and right lower quadrant abdominal pain chills and persistent nausea. Denies any chest pain, shortness of breath, diarrhea or constipation. 08/23/2019. No acute events overnight. Still complaining of persistent left lower quadrant abdominal pain but improving compared to yesterday, denies any fever, chills, nausea, vomiting, abdominal pain, diarrhea, constipation. 08/24/2019. Abdominal pain improving compared to yesterday, denies any fever, chills, nausea, vomiting, diarrhea, constipation, shortness of breath or any chest pain. Reason For Visit: PYELONEPHRITIS DM,SUPER MORBID OBESITY Physical Exam Vital Signs: Temp Pulse Resp BP Pulse Ox 98.2 F 89 18 142/91 H 93 08/24/19 11:23 08/24/19 11:23 08/24/19 11:23 08/24/19 11:23 08/24/19 11:23 Intake & Output 08/23/19 08/24/19 08/25/19 06:59 06:59 06:59 Intake Total 1208 1377 Output Total 1775 1675 1575 Balance -567 -298 -1575 Weight 190.2 kg 193.1 kg General appearance: PRESENT: morbidly obese Head exam: PRESENT: atraumatic, normocephalic Respiratory exam: PRESENT: clear to auscultation rima. ABSENT: rales, rhonchi, wheezes Cardiovascular exam: PRESENT: RRR. ABSENT: diastolic murmur, rubs, systolic murmur GI/Abdominal exam: PRESENT: normal bowel sounds, soft, tenderness - Left lower quadrant. ABSENT: distended, guarding, mass, organolmegaly, rebound Neurological exam: PRESENT: alert, awake, oriented to person, oriented to place, oriented to time, oriented to situation, CN II-XII grossly intact. ABSENT: motor sensory deficit Results Laboratory Results: 08/24/19 05:20 08/24/19 05:20 08/23/19 08/24/19 08/24/19 21:59 05:20 05:20 WBC 17.6 H RBC 3.61 L Hgb 10.5 L Hct 31.6 L MCV 88 MCH 29.0 MCHC 33.1 RDW 16.3 H Plt Count 228 Seg Neutrophils % 75.2 Sodium 136.2 L 139.4 Potassium 4.5 D 3.7 Chloride 102 102 Carbon Dioxide 28 29 Anion Gap 6 8 BUN 12 11 Creatinine 0.58 0.60 Est GFR ( Amer) > 60 > 60 Glucose 133 H 121 H Calcium 7.8 L 8.0 L Magnesium 2.5 H 08/21/19 22:54 Blood Blood Culture (PCR) - Final Staphylococcus Species 08/21/19 13:20 Clean Catch Midstream Urine Culture - Final Escherichia Coli 08/22/19 13:21 NT-Pro-B Natriuret Pep 121 Impressions: Abdomen/Pelvis CT 08/21/19 13:29 IMPRESSION: Hyperdense mass left upper pole kidney could represent a hemorrhagic cyst or solid tumor. Left upper quadrant retroperitoneal inflammation. Differential is pyelonephritis versus pancreatitis at the pancreatic tail. Inflammation in the region from splenic flexure colitis could not be excluded Chest X-Ray 08/21/19 13:30 IMPRESSION: Mild cardiomegaly. No acute infiltrates Assessment and Plan - Diagnosis (1) UTI (urinary tract infection) Qualifiers: Urinary tract infection type: acute pyelonephritis Qualified Code(s): N10 - Acute pyelonephritis Is this a current diagnosis for this admission?: Yes Plan: Acute pyelonephritis. Abdominal CT positive for left upper quadrant retroperitoneal inflammation. Due to E. coli pansensitive. Day 4 IV antibiotics. Day 3 IV Zosyn. Received 1 dose of IV ceftriaxone. Patient is still having worsening leukocytosis and still febrile. We will switch ceftriaxone to Zosyn to extend coverage. Continue broad-spectrum empiric IV antibiotics. If symptomatic improvement can be switched to p.o. antibiotics tomorrow in anticipation for home discharge. (2) Diabetes Qualifiers: Diabetes mellitus type: type 2 Is this a current diagnosis for this admission?: Yes Plan: Controlled. Hemoglobin A1c 6.7. Continue diabetic diet, sliding scale insulin, Accu-Chek, hypoglycemia protocol. Resume home meds upon discharge. (3) Obstructive sleep apnea Is this a current diagnosis for this admission?: Yes Plan: Complicated by super morbid obesity. Continue nocturnal CPAP. Outpatient nocturnal polysomnography. (4) SIRS (systemic inflammatory response syndrome) Is this a current diagnosis for this admission?: Yes Plan: Presented with fever, neutrophilic leukocytosis, tachypnea, tachycardia. Normal platelets. Normal creatinine. Normal LFTs. Normal lactic acid. Due to acute pyelonephritis. Continue empiric IV antibiotics, continue volume restriction guided by volume status, follow-up blood and urine culture. (5) Sepsis Is this a current diagnosis for this admission?: Yes Plan: Ruled out. Presentation is more suggestive of systemic inflammatory response. Presented with fever, neutrophilic leukocytosis, tachypnea, tachycardia. Normal platelets. Normal creatinine. Normal LFTs. Normal lactic acid. (6) Morbid obesity with BMI of 70 and over, adult Is this a current diagnosis for this admission?: Yes Plan: BMI 77.4. Likely a candidate for bariatric intervention. TSH WNL. Lipid panel WNL. Hemoglobin A1c 7.3. Diet and lifestyle modification recommended. (7) Left renal mass Is this a current diagnosis for this admission?: Yes Plan: Left renal mass incidental finding on CT abdomen pelvis. Hemorrhage versus solid mass. We will consult oncology for further recommendation. (8) Gram-positive bacteremia Is this a current diagnosis for this admission?: Yes Plan: Interval culture on admission 1/4 bottles growing gram-positive cocci in clusters coag negative. Most likely contamination. Repeat blood cultures negative.
--- NOTE | 2019-08-24 14:28 | CDI QUERY ---
CDI Query CDI Review: Dear Provider: To better reflect your patients severity of illness, morbidity, and resource utilization Please specify and document in the Progress Notes and Discharge Summary if you are monitoring / treating / evaluating any of the following conditions: The terms probable, suspected, likely, possible or still to be ruled out may be used if you are unable to determine the exact nature of a condition. Query Clinical indicators Severe Morbid Obesity with alveolar hypoventilation (Pickwickian Syndrome) Severe Morbid Obesity without alveolar hypoventilation (Pickwickian Syndrome) Unable to determine Other Per Progress Notes: Morbid obesity with BMI of 70 and over, adult Reports sleep apnea Obstructive sleep apnea Is this a current diagnosis for this admission?: Yes Plan: Complicated by super morbid obesity. Continue nocturnal CPAP. Chest X-Ray 08/21/19 13:30 IMPRESSION: Mild cardiomegaly. Thank you, Clinical Documentation Physician Advisors CONNER Lopez RN, BSN RN Office [phone] Office [phone]
--- NOTE | 2019-08-24 16:35 | PDOC CONSULTATION ---
Consultation Consult Date: 08/24/19 Provider Consulted: CARLINE MERCADO Consult reason:: Hematology/Oncology consultation was requested for patient with renal mass/cyst on CT History of Present Illness Admission Date/PCP: 08/21/19 22:22 History of Present Illness: SABRINA MEZA is a 59 year old female who states that 7 days ago, she developed pain in her left side. Very small at first, but then she developed shaking chills and nausea. She treated this conservatively for about 3 days, and symptoms initially improved, but then progressed. She denies any dyspnea or chest pain. She presented to the ED and was found to have UTI. CT abdomen showed abnormality in the left kidney consistent with infection, cyst, or mass. Today, she states that she is feeling much better. Her nausea has subsided and she is able to eat. She still has some pain in her left side, but this has improved. Past Medical History Cardiac Medical History: Reports: Hyperlipidema, Hypertension Pulmonary Medical History: Reports: Sleep Apnea Endocrine Medical History: Reports: Diabetes Mellitus Type 2 Social History Lives with: Family Smoking Status: Former Smoker - Advance Directive Resuscitation Status: Full Code Family History Family History: CAD, DM, Hypertension Parental Family History Reviewed: Yes - Father with DM. MGM with lung cancer Children Family History Reviewed: No Sibling(s) Family History Reviewed.: Yes - Brother with DM. Medication/Allergy Home Medications: Albuterol Sulfate [Proventil Hfa] 1 puff IH Q4HP PRN 08/22/19 Amlodipine Besylate [Norvasc 5 mg Tablet] 5 mg PO DAILY 08/22/19 Aspirin [Ecotrin 81 mg EC Tablet] 81 mg PO DAILY 08/22/19 Atorvastatin Calcium [Lipitor 40 mg Tablet] 40 mg PO DAILY 08/22/19 Famotidine [Pepcid] 20 mg PO QHS 08/22/19 Fluticasone Propionate [Flovent Hfa] 1 puff IH BID 08/22/19 Gabapentin [Neurontin 300 mg Capsule] 300 mg PO BID 08/22/19 Metformin HCl 1,000 mg PO BID 08/22/19 Metoprolol Succinate [Kapspargo Sprinkle] 100 mg PO DAILY 08/22/19 Allergies/Adverse Reactions: No Known Allergies Allergy (Verified 08/21/19 13:26) Review of Systems Constitutional: PRESENT: chills, fatigue, fever(s) Eyes: ABSENT: visual disturbances Ears: ABSENT: hearing changes Nose, Mouth, and Throat: PRESENT: other - runny nose. ABSENT: sore throat Cardiovascular: ABSENT: chest pain Respiratory: ABSENT: dyspnea Gastrointestinal: PRESENT: as per HPI Genitourinary: ABSENT: hematuria Musculoskeletal: PRESENT: as per HPI Integumentary: ABSENT: pruritus, rash Neurological: PRESENT: weakness Hematologic/Lymphatic: ABSENT: easy bleeding Physical Exam Vital Signs: Temp Pulse Resp BP Pulse Ox 98.3 F 81 18 131/79 H 98 08/24/19 15:35 08/24/19 15:35 08/24/19 15:35 08/24/19 15:35 08/24/19 15:35 Intake & Output 08/23/19 08/24/19 08/25/19 06:59 06:59 06:59 Intake Total 1208 1377 836 Output Total 1773 9295 1575 Balance -561 -422 -359 Weight 190.2 kg 193.1 kg 193.1 kg General appearance: PRESENT: no acute distress, morbidly obese Exam: 59 year old female. Head exam: PRESENT: atraumatic, normocephalic Eye exam: PRESENT: EOMI Mouth exam: PRESENT: tongue midline Neck exam: ABSENT: lymphadenopathy, tenderness Respiratory exam: PRESENT: decreased breath sounds, unlabored Cardiovascular exam: PRESENT: other - heart sounds obscured. Pulse is regular. GI/Abdominal exam: PRESENT: soft, tenderness - epigastric Extremities exam: ABSENT: pedal edema Neurological exam: PRESENT: alert, awake, oriented to person, oriented to place, oriented to time, oriented to situation Psychiatric exam: PRESENT: appropriate affect Skin exam: PRESENT: normal color Results Laboratory Results: 08/24/19 05:20 08/24/19 05:20 08/23/19 08/24/19 08/24/19 21:59 05:20 05:20 WBC 17.6 H RBC 3.61 L Hgb 10.5 L Hct 31.6 L MCV 88 MCH 29.0 MCHC 33.1 RDW 16.3 H Plt Count 228 Seg Neutrophils % 75.2 Sodium 136.2 L 139.4 Potassium 4.5 D 3.7 Chloride 102 102 Carbon Dioxide 28 29 Anion Gap 6 8 BUN 12 11 Creatinine 0.58 0.60 Est GFR ( Amer) > 60 > 60 Glucose 133 H 121 H Calcium 7.8 L 8.0 L Magnesium 2.5 H 08/21/19 22:54 Blood Blood Culture (PCR) - Final Staphylococcus Species 08/21/19 13:20 Clean Catch Midstream Urine Culture - Final Escherichia Coli 08/22/19 13:21 NT-Pro-B Natriuret Pep 121 Impressions: Abdomen/Pelvis CT 08/21/19 13:29 IMPRESSION: Hyperdense mass left upper pole kidney could represent a hemorrhagic cyst or solid tumor. Left upper quadrant retroperitoneal inflammation. Differential is pyelonephritis versus pancreatitis at the pancreatic tail. Inflammation in the region from splenic flexure colitis could not be excluded Chest X-Ray 08/21/19 13:30 IMPRESSION: Mild cardiomegaly. No acute infiltrates Status: Image reviewed by me Assessment & Plan - Diagnosis (1) Left renal mass Is this a current diagnosis for this admission?: Yes Plan: CT scans are difficult to tell if this is just infectious, benign cyst, or a concerning mass. We discussed options. I would repeat CT in 2-3 months, with contrast if possible for comparison. Since she lives in [place], she will need to take CD-disc of current CT scan with her and her PCP will need to arrange a follow-up CT closer to her home. (2) Morbid obesity with BMI of 70 and over, adult Is this a current diagnosis for this admission?: Yes (3) Pyelonephritis Is this a current diagnosis for this admission?: Yes Plan: Continue antibiotics. Her WBC count is appropriately elevated in this situation. - Plan Summary Plan Summary: Thank you for this consultation. Patient was discussed with Dr. Bond.
[2019-08-24] MEDS: ATORVASTATIN CALCIUM 40 MG TABLET PO SCH (22:16)
[2019-08-24 23:00] LABS: ANION GAP 6 (5-19); BLOOD UREA NITROGEN 11 mg/dL (7-20); CALCIUM 8.2 mg/dL (8.4-10.2); CARBON DIOXIDE 32 mmol/L (22-30); CHLORIDE 101 mmol/L (98-107); GLUCOSE 109 mg/dL (75-110)
[2019-08-25] MEDS: PIPERACILLIN SODIUM/TAZOBACTAM 4.5 GM in NORMAL SALINE 100 ML IV SCH ×3 (05:01→17:39)
[2019-08-25] MEDS: HEPARIN SOD (PORCINE) 5,000 UNIT/ML 1 ML VIAL SUBCUT SCH ×2 (05:02→14:07)
[2019-08-25] MEDS: INSULIN LISPRO 100 UNIT/ML 3 ML VIAL SUBCUT SCH ×3 (07:49→15:46)
--- NOTE | 2019-08-25 08:23 | PDOC PROGRESS REPORT ---
Subjective Progress Note for:: 08/25/19 Subjective:: Patient is siting up in bed eating breakfast. She states that her stomach has greatly improved. Pain is still present, but not getting any worse. She will try to walk in [place] today. She is anxious to go home, but is still a bit weak. Reason For Visit: PYELONEPHRITIS DM,SUPER MORBID OBESITY Physical Exam Vital Signs: Temp Pulse Resp BP Pulse Ox 99.0 F 87 26 H 123/66 97 08/25/19 01:06 08/25/19 07:00 08/25/19 01:06 08/25/19 01:06 08/25/19 01:06 Intake & Output 08/24/19 08/25/19 08/26/19 06:59 06:59 06:59 Intake Total 1377 1836 Output Total 1671 4195 Balance -298 -1789 Weight 193.1 kg 191.5 kg General appearance: PRESENT: no acute distress, morbidly obese Head exam: PRESENT: normocephalic Respiratory exam: PRESENT: unlabored Extremities exam: ABSENT: +1 edema Neurological exam: PRESENT: alert, awake Psychiatric exam: PRESENT: appropriate affect Skin exam: PRESENT: normal color Results Laboratory Results: 08/24/19 05:20 08/24/19 22:24 08/24/19 22:24 Sodium 138.9 Potassium 4.0 Chloride 101 Carbon Dioxide 32 H Anion Gap 6 BUN 11 Creatinine 0.64 Est GFR ( Amer) > 60 Glucose 109 Calcium 8.2 L 08/21/19 22:54 Blood Blood Culture (PCR) - Final Staphylococcus Species 08/22/19 13:21 NT-Pro-B Natriuret Pep 121 Impressions: Abdomen/Pelvis CT 08/21/19 13:29 IMPRESSION: Hyperdense mass left upper pole kidney could represent a hemorrhagic cyst or solid tumor. Left upper quadrant retroperitoneal inflammation. Differential is pyelonephritis versus pancreatitis at the pancreatic tail. Inflammation in the region from splenic flexure colitis could not be excluded Chest X-Ray 08/21/19 13:30 IMPRESSION: Mild cardiomegaly. No acute infiltrates Assessment & Plan - Diagnosis (1) Left renal mass Is this a current diagnosis for this admission?: Yes Plan: She follows with Dr. Christine Garcia. I will coordinate with her office for follow-up CT scans in a few weeks. (2) Morbid obesity with BMI of 70 and over, adult Is this a current diagnosis for this admission?: Yes (3) Pyelonephritis Is this a current diagnosis for this admission?: Yes - Time Time Spent with patient: Less than 15 minutes - Plan Summary Plan Summary: Please call if needed.
[2019-08-25] MEDS: ASPIRIN 81 MG TABLET, ENT COATED PO SCH (09:09)
[2019-08-25] MEDS: GABAPENTIN 300 MG CAPSULE PO SCH (09:09)
[2019-08-25] MEDS: METOPROLOL SUCCINATE 50 MG TAB.SR.24H PO SCH (09:09)
[2019-08-25] MEDS: DOCUSATE SODIUM 100 MG CAPSULE PO SCH ×2 (09:09→17:35)
[2019-08-25] MEDS: METFORMIN HCL 500 MG TABLET PO SCH ×2 (09:09→17:35)
[2019-08-25] MEDS: ACETAMINOPHEN 325 MG TABLET PO PRN (09:09)
[2019-08-25] MEDS: MAGNESIUM HYDROXIDE SUSP 30 ML UDCUP PO SCH (09:15)
--- NOTE | 2019-08-25 15:49 | PDOC DISCHARGE SUMMARY ---
Impression - Admit/DC Date/PCP Admission Date/Primary Care Provider: 08/21/19 22:22 Discharge Date: 08/25/19 - Discharge Diagnosis (1) Pyelonephritis Is this a current diagnosis for this admission?: Yes (2) Obesity hypoventilation syndrome Is this a current diagnosis for this admission?: Yes (3) Diabetes Is this a current diagnosis for this admission?: Yes (4) Gram-positive bacteremia Is this a current diagnosis for this admission?: Yes (5) Left renal mass Is this a current diagnosis for this admission?: Yes (6) Morbid obesity with BMI of 70 and over, adult Is this a current diagnosis for this admission?: Yes (7) Obstructive sleep apnea Is this a current diagnosis for this admission?: Yes (8) Sepsis Is this a current diagnosis for this admission?: Yes - Additional Information Resuscitation Status: Full Code Discharge Diet: Cardiac, Diabetic Discharge Activity: Slowly Increase Activity Prescriptions: Cephalexin Monohydrate [Keflex 500 mg Capsule] 500 mg PO QID #40 capsule Home Medications: Albuterol Sulfate [Proventil Hfa] 1 puff IH Q4HP PRN 08/22/19 Aspirin [Ecotrin 81 mg EC Tablet] 81 mg PO DAILY 08/22/19 Atorvastatin Calcium [Lipitor 40 mg Tablet] 40 mg PO DAILY 08/22/19 Famotidine [Pepcid] 20 mg PO QHS 08/22/19 Fluticasone Propionate [Flovent Hfa] 1 puff IH BID 08/22/19 Gabapentin [Neurontin 300 mg Capsule] 300 mg PO BID 08/22/19 Metformin HCl 1,000 mg PO BID 08/22/19 Metoprolol Succinate [[place] Sprinkle] 100 mg PO DAILY 08/22/19 Cephalexin Monohydrate [Keflex 500 mg Capsule] 500 mg PO QID #40 capsule 08/25/19 History of Present Illiness History of Present Illness: SABRINA MEZA is a 59 year old female with a past medical history of diabetes, hypertension, super morbid obesity and obstructive sleep apnea. She presents with fever and 4 days of sharp left-sided chest pain worsened by deep breathing. In the emergency department she is found to have fever, tachycardia, pyuria and left-sided pyelonephritis without abscess or hydronephrosis. She started on empiric antibiotics and referred to the hospitalist for admission. Patient denies recent antibiotic use or nephrolithiasis. Hospital Course Hospital Course: She responded well to antibiotics. She turned out to have a fairly sensitive E. coli and will finish course of Keflex. Blood cultures turn positive but this turned out to be a contaminating coagulase-negative Staphylococcus. Repeat cultures were negative. She was hypoxic, and this is thought to be due to obesity hypoventilation syndrome. We qualify her for oxygen and set her up to have that at home. She also needs an outpatient sleep study. She was found to have a left adrenal mass, was seen in consultation by oncology, who recommended CT scan surveillance in 2 to 3 months to determine if there is resolution. Her comorbid conditions were managed with her home medications. Her labs and examination were reassuring and she was discharged in stable condition. Physical Exam Vital Signs: Temp Pulse Resp BP Pulse Ox 97.9 F 90 19 145/69 H 95 08/25/19 11:17 08/25/19 14:00 08/25/19 11:17 08/25/19 11:17 08/25/19 13:11 Intake & Output 08/24/19 08/25/19 08/26/19 06:59 06:59 06:59 Intake Total 1377 1836 Output Total 1675 5475 Balance -298 -1789 Weight 193.1 kg 191.5 kg General appearance: PRESENT: morbidly obese Head exam: PRESENT: atraumatic, normocephalic Respiratory exam: PRESENT: clear to auscultation rima. ABSENT: rales, rhonchi, wheezes Cardiovascular exam: PRESENT: RRR. ABSENT: diastolic murmur, rubs, systolic murmur GI/Abdominal exam: PRESENT: normal bowel sounds, soft. ABSENT: distended, guarding, mass, organolmegaly, rebound, tenderness Neurological exam: PRESENT: alert, awake, oriented to person, oriented to place, oriented to time, oriented to situation, CN II-XII grossly intact. ABSENT: motor sensory deficit Results Laboratory Results: WBC 17.6 10^3/uL (4.0-10.5) H 08/24/19 05:20 RBC 3.61 10^6/uL (3.72-5.28) L 08/24/19 05:20 Hgb 10.5 g/dL (12.0-15.5) L 08/24/19 05:20 Hct 31.6 % (36.0-47.0) L 08/24/19 05:20 MCV 88 fl (80-97) 08/24/19 05:20 MCH 29.0 pg (27.0-33.4) 08/24/19 05:20 MCHC 33.1 g/dL (32.0-36.0) 08/24/19 05:20 RDW 16.3 % (11.5-14.0) H 08/24/19 05:20 Plt Count 228 10^3/uL (150-450) 08/24/19 05:20 Lymph % (Auto) 13.6 % (13-45) 08/24/19 05:20 [place] % (Auto) 8.7 % (3-13) 08/24/19 05:20 Eos % (Auto) 2.0 % (0-6) 08/24/19 05:20 Baso % (Auto) 0.5 % (0-2) 08/24/19 05:20 Absolute Neuts (auto) 13.2 10^3/uL (1.7-8.2) H 08/24/19 05:20 Absolute Lymphs (auto) 2.4 10^3/uL (0.5-4.7) 08/24/19 05:20 Absolute Monos (auto) 1.5 10^3/uL (0.1-1.4) H 08/24/19 05:20 Absolute Eos (auto) 0.4 10^3/uL (0.0-0.6) 08/24/19 05:20 Absolute Basos (auto) 0.1 10^3/uL (0.0-0.2) 08/24/19 05:20 Seg Neutrophils % 75.2 % (42-78) 08/24/19 05:20 Sodium 138.9 mmol/L (137-145) 08/24/19 22:24 Potassium 4.0 mmol/L (3.6-5.0) 08/24/19 22:24 Chloride 101 mmol/L (98-107) 08/24/19 22:24 Carbon Dioxide 32 mmol/L (22-30) H 08/24/19 22:24 Anion Gap 6 (5-19) 08/24/19 22:24 BUN 11 mg/dL (7-20) 08/24/19 22:24 Creatinine 0.64 mg/dL (0.52-1.25) 08/24/19 22:24 Est GFR ( Amer) > 60 (>60) 08/24/19 22:24 Est GFR (Non-Af Amer) Cancelled 08/22/19 22:00 Est GFR (MDRD) Non-Af > 60 (>60) 08/24/19 22:24 Glucose 109 mg/dL (75-110) 08/24/19 22:24 POC Glucose 146 mg/dL (70-110) H 08/25/19 15:07 Hemoglobin A1c % 6.7 % (4.7-6.0) H 08/22/19 05:09 Lactic Acid 1.5 mmol/L (0.7-2.1) 08/22/19 06:20 Calcium 8.2 mg/dL (8.4-10.2) L 08/24/19 22:24 Magnesium 2.5 mg/dL (1.6-2.3) H 08/24/19 05:20 Total Bilirubin 1.1 mg/dL (0.2-1.3) 08/21/19 18:24 Direct Bilirubin 0.7 mg/dL (0.0-0.4) H 08/21/19 18:24 Neonat Total Bilirubin Not Reportable 08/21/19 18:24 Neonat Direct Bilirubin Not Reportable 08/21/19 18:24 Neonat Indirect Bili Not Reportable 08/21/19 18:24 AST 29 U/L (14-36) 08/21/19 18:24 ALT 45 U/L (<35) 08/21/19 18:24 Alkaline Phosphatase 200 U/L (38-126) H 08/21/19 18:24 NT-Pro-B Natriuret Pep 121 pg/mL (<125) 08/22/19 13:21 Total Protein 7.7 g/dL (6.3-8.2) 08/21/19 18:24 Albumin 3.8 g/dL (3.5-5.0) 08/21/19 18:24 Triglycerides 101 mg/dL (<150) 08/22/19 05:09 Cholesterol 95.17 mg/dL (0-200) 08/22/19 05:09 LDL Cholesterol Direct 55 mg/dL (<100) 08/22/19 05:09 VLDL Cholesterol 20.0 mg/dL (10-31) 08/22/19 05:09 HDL Cholesterol 18 mg/dL (>40) L 08/22/19 05:09 Lipase 205.7 U/L (23-300) 08/21/19 18:24 EGFR Cancelled 08/22/19 22:00 TSH 2.44 uIU/mL (0.47-4.68) 08/22/19 05:09 Urine Color YELLOW 08/21/19 13:20 Urine Appearance CLEAR 08/21/19 13:20 Urine pH 7.0 (5.0-9.0) 08/21/19 13:20 Ur Specific [place] 1.008 08/21/19 13:20 Urine Protein NEGATIVE mg/dL (NEGATIVE) 08/21/19 13:20 Urine Glucose (UA) NEGATIVE mg/dL (NEGATIVE) 08/21/19 13:20 Urine Ketones TRACE mg/dL (NEGATIVE) H 08/21/19 13:20 Urine Blood SMALL (NEGATIVE) H 08/21/19 13:20 Urine Nitrite (Reflex) NEGATIVE (NEGATIVE) 08/21/19 13:20 Urine Bilirubin NEGATIVE (NEGATIVE) 08/21/19 13:20 Urine Urobilinogen 4.0 mg/dL (<2.0) H 08/21/19 13:20 Leukocyte Esterase Rfl MODERATE (NEGATIVE) H 08/21/19 13:20 Urine RBC (Auto) 3 /HPF 08/21/19 13:20 Urine WBC (Reflex) 64 /HPF 08/21/19 13:20 Squamous Epi Cells Auto 2 /HPF 08/21/19 13:20 Urine Ascorbic Acid NEGATIVE (NEGATIVE) 08/21/19 13:20 08/22/19 13:21 NT-Pro-B Natriuret Pep 121 Impressions: Abdomen/Pelvis CT 08/21/19 13:29 IMPRESSION: Hyperdense mass left upper pole kidney could represent a hemorrhagic cyst or solid tumor. Left upper quadrant retroperitoneal inflammation. Differential is pyelonephritis versus pancreatitis at the pancreatic tail. Inflammation in the region from splenic flexure colitis could not be excluded Chest X-Ray 08/21/19 13:30 IMPRESSION: Mild cardiomegaly. No acute infiltrates Plan Time Spent: Greater than 30 Minutes Stroke Is this a Stroke Patient?: No Acute Heart Failure - Is this a Heart Failure Patient?: No
[2019-08-25 18:40] VITALS: BP 122/71
== END 2019-08-25 21:08 | disposition home or self-care (01) | DRG 690 ==
LOC: ER 11:52 → EH 22:22 → 4N 08-22 00:36
PROVIDERS: ADMIT Internal Medicine; ATTEND Internal Medicine
DX: N10 Acute pyelonephritis (principal); Z68.45 Body mass index [BMI] 70 or greater, adult; E66.2 Morbid (severe) obesity with alveolar hypoventilation; B96.20 Unspecified Escherichia coli [E. coli] as the cause of diseases classified elsewhere; E11.9 Type 2 diabetes mellitus without complications; I10 Essential (primary) hypertension; N28.89 Other specified disorders of kidney and ureter; E78.5 Hyperlipidemia, unspecified; Z87.891 Personal history of nicotine dependence; Z83.3 Family history of diabetes mellitus; Z82.49 Family history of ischemic heart disease and other diseases of the circulatory system; Z79.82 Long term (current) use of aspirin; Z79.51 Long term (current) use of inhaled steroids; Z79.84 Long term (current) use of oral hypoglycemic drugs
CPT/HCPCS: 36415; 71046; 74176; 80048; 80053; 80061; 81001; 82962; 83036; 83605; 83690; 83735; 83880; 84443; 85025; 87040; 87077; 87086; 87088; 87150; 87186; 93005; 93010; 94660; 94761; 94799; 96372; 96374; 99285; J0696; J1644; J1815; J1885; J2270; J2543; J3480; J3490; J7030; J7050; J8499; S0119